=== PATIENT | female | born 1965 ===

== ENCOUNTER 2019-03-12 13:32 | Outpatient (CLI) | payer MEDICAID ==
[~2019-03-12] VITALS: Ht 160 cm; Wt 73.9 kg
--- NOTE | 2019-03-12 19:15 | Consultation ---
DATE OF CONSULTATION: 03/12/2019 CHIEF COMPLAINT: Rectal bleeding. HISTORY OF PRESENT ILLNESS: This is a 54-year-old female who is very anxious in my office, and she needs a colonoscopy [facility]. Apparently, she had big polyps about a [id number]-[id number]-half ago. We could not take it out and she needed to have another colonoscopy in a year. She is running 6 months late. Now, she is having rectal pain and abdominal pain, most recently admitted to the ER, had a CT scan, and she wants to get a colonoscopy as soon as possible. PAST MEDICAL HISTORY: 1. Fatty liver. 2. Colonic polyps. 3. Question of peptic ulcer disease. 4. Bilateral adrenal nodules. PAST SURGICAL HISTORY: 1. Rhinoplasty. 2. Appendectomy. 3. Bladder surgery. MEDICATION: At this time, none. ALLERGIES: No known drug allergies. FAMILY HISTORY: Mother had lung cancer. SOCIAL HISTORY: The patient drinks socially. Smokes half a pack of cigarettes per day for many years. No IV drug abuse. REVIEW OF SYSTEMS: A 10-point review of systems was performed and pertinent positives in the HPI. PHYSICAL EXAMINATION: GENERAL: A well-developed female. HEENT: Normocephalic and atraumatic. Sclerae anicteric. NECK: Supple. No evidence of lymphadenopathy. CARDIOVASCULAR: Regular rhythm. Plus S1 and S2. No obvious murmur. LUNGS: Clear to auscultation bilaterally. ABDOMEN: Positive bowel sounds. Soft and nontender. No rebound. No guarding. No peritoneal sign. EXTREMITIES: No cyanosis, clubbing, or edema. ASSESSMENT AND PLAN: This is a 54-year-old female with past medical history of large colonic polyps, which were not completely excised according to her. Now, she is having rectal bleeding. Very concerned about colon malignancy. Plan to do a colonoscopy. The patient was given the prep and instruction and pending authorization to do colonoscopy. Rudi Henderson M.D. DR: SURENDRA JOB#: [id number] CC:
[2019-03-13] MEDS ORDERED: no medication (08:33)
== END 2019-03-12 15:32 | disposition home or self-care (01) ==
LOC: PAN 13:32
DX: K62.5 Hemorrhage of anus and rectum (principal); Z86.010 Personal history of colon polyps; Z90.89 Acquired absence of other organs; Z80.1 Family history of malignant neoplasm of trachea, bronchus and lung; F17.210 Nicotine dependence, cigarettes, uncomplicated
CPT/HCPCS: 99202